=== PATIENT | male | born 1955 | race Caucasian/White ===

== ENCOUNTER 2018-06-01 10:31 | Day surgery (SDC) | payer MEDICARE, OTHER ==
[~2018-06-01] VITALS: Ht 181.6 cm; Wt 134.6 kg
[2018-06-01 11:10] VITALS: BP 166/91
[2018-06-01] MEDS ORDERED: LACTATED RINGERS 1,000 ML IV SCH (11:12)
[2018-06-01] MEDS ORDERED: PLEASE ENTER HEIGHT AND WEIGHT MC SCH (12:00)
[2018-06-01] MEDS ORDERED: PLEASE ENTER ALLERGIES MC SCH (12:00)
[2018-06-01] MEDS ORDERED: TIZA4CAP PO (12:03)
[2018-06-01] MEDS ORDERED: atorvastatin (12:03)
[2018-06-01] MEDS ORDERED: LISI-170 PO (12:03)
[2018-06-01] MEDS ORDERED: ATEN50TA41 PO (12:03)
[2018-06-01] MEDS ORDERED: SITA1TAB5 PO (12:03)
[2018-06-01 12:29] LABS: ALANINE AMINOTRANSFERASE 39 U/L (12-78); ANION GAP 10 mmol/L (5-15); CALCIUM 8.9 mg/dL (8.5-10.1); CHLORIDE 103 mmol/L (98-107); CREATININE 0.94 mg/dL (0.7-1.3)
[2018-06-01 12:30] LABS: ALKALINE PHOSPHATASE 104 U/L (45-117); BILIRUBIN,TOTAL 0.8 mg/dL (0.2-1.0); TOTAL PROTEIN 7.1 g/dL (6.4-8.2)
[2018-06-01] MEDS ORDERED: PROPOFOL 10 MG/ML, 20ML ONE (12:59)
[2018-06-01] MEDS ORDERED: MIDAZOLAM 1 MG/ML, 2ML ONE (13:00)
[2018-06-01] MEDS ORDERED: FENTANYL PF 100 MCG/2ML ONE (13:00)
[2018-06-01] MEDS ORDERED: DEXAMETHASONE 4 MG/ML, 1ML ONE ×2 (13:12)
[2018-06-01] MEDS ORDERED: ONDANSETRON 2MG/ML, 2ML ONE ×2 (13:12)
[2018-06-01] MEDS ORDERED: FENTANYL PF 100 MCG/2ML IV PRN (13:30)
[2018-06-01] MEDS ORDERED: OXYcodone 5 MG/5 ML ORAL.SOL UDC PO PRN (13:30)
[2018-06-01] MEDS ORDERED: HALOPERIDOL 5 MG/ML IV PRN (13:30)
[2018-06-01] MEDS ORDERED: ACETAMINOPHEN 325 MG TABLET PO PRN (13:30)
[2018-06-01] MEDS ORDERED: PROMETHAZINE 25 MG/ML, 1ML IV PRN (13:30)
[2018-06-01] MEDS ORDERED: HYDROmorphone 2 MG/ML, 1ML IVPush PRN (13:30)
[2018-06-01] MEDS ORDERED: hydrALAzine 20 MG/ML, 1ML IV PRN (13:30)
[2018-06-01] MEDS ORDERED: MEPERIDINE/PF 25MG/0.5ML IVPush PRN (13:30)
[2018-06-01] MEDS ORDERED: ALBUTEROL SULFATE 2.5 MG/3 ML NPPB PRN (13:30)
[2018-06-01] MEDS ORDERED: hydrALAzine 20 MG/ML, 1ML ONE (13:47)
== END 2018-06-01 15:05 | disposition home or self-care (01) ==
LOC: OUT 10:31
PROVIDERS: ATTEND Internal Medicine Geriatric Medicine
DX: Z12.11 Encounter for screening for malignant neoplasm of colon (principal); K63.89 Other specified diseases of intestine; Z86.010 Personal history of colon polyps; E66.01 Morbid (severe) obesity due to excess calories; E66.9 Obesity, unspecified; I10 Essential (primary) hypertension; E11.9 Type 2 diabetes mellitus without complications; Z68.43 Body mass index [BMI] 50.0-59.9, adult
CPT/HCPCS: 36415; 80053; 93005; G0105; J0360; J1100; J2250; J2405; J2704; J3010; J7120